=== PATIENT | female | born 1945 | race Caucasian/White ===

== ENCOUNTER 2017-10-01 07:50 | Outpatient (CLI) | payer OTHER | END 2017-10-01 19:50 | disposition home or self-care (01) | LOC: SMA 07:50 | PROVIDERS: ATTEND Family Medicine | DX: Z12.31 Encounter for screening mammogram for malignant neoplasm of breast (principal) | CPT/HCPCS: 77067 ==

== ENCOUNTER 2022-11-18 10:37 | Emergency (ER) | payer OTHER ==
[~2022-11-18] VITALS: Ht 147.3 cm; Wt 63.5 kg
[2022-11-18 11:00] VITALS: BP_SYST 170
--- NOTE | 2022-11-18 11:30 | NUR ---
PT BIB DAUGHTER RENETTA AND KATE AOX4, NO SOB. PT C/O PAIN TO RECTUM AREA. PT STATES RED BLOOD AND PAIN. PT STATES PAIN 7/10. PT HAS HX OF HTN, ANXITY, HTN, DIVERTCOLISIS.
--- NOTE | 2022-11-18 11:31 | NUR ---
MD DR MCLEOD AT BEDSIDE
[2022-11-18 13:31] LABS: BASOPHILS % (AUTO) 0.7 % (0.0-2.0); EOSINOPHILS # (AUTO) 0.1 K/uL (0.0-0.4); EOSINOPHILS % (AUTO) 1.1 % (0.0-4.0); HEMATOCRIT 31.9 % (36-48); HEMOGLOBIN 10.8 g/dL (12.0-16.0); LYMPHOCYTES # (AUTO) 1.6 K/uL (1.0-5.5); LYMPHOCYTES % (AUTO) 24.2 % (20.5-51.5); MEAN CORPUSCULAR HEMOGLOBIN 31 pg (27-31); MEAN CORPUSCULAR HGB CONC 34 % (32-36); MEAN CORPUSCULAR VOLUME 92 fL (79.0-98.0); MONOCYTES # (AUTO) 0.4 K/uL (0.0-1.0); MONOCYTES % (AUTO) 5.5 % (1.7-9.3); NEUTROPHILS # (AUTO) 4.4 K/uL (1.8-7.7); NEUTROPHILS % (AUTO) 68.5 % (40.0-70.0); RED BLOOD CELL COUNT(AUTO) 3.45 MIL/uL (4.2-6.2); RED CELL DISTRIBUTION WIDTH 15.7 % (9.0-15.0)
[2022-11-18] MEDS ORDERED: ANURH RC (13:44)
[2022-11-18 13:46] LABS: WHITE BLOOD COUNT (AUTO) 6.4 K/uL (4.8-10.8)
[2022-11-18 13:53] LABS: ANION GAP 7 (5-15); CALCIUM 8.7 mg/dL (8.4-11.0); CHLORIDE 102 mmol/L (98-107); CREATININE 0.97 mg/dL (0.55-1.30); GLUCOSE 85 mg/dL (70-99); UREA NITROGEN, BLOOD 22 mg/dL (8-21)
[2022-11-18 13:57] LABS: ALANINE AMINOTRANSFERASE 61 U/L (12-78); ALBUMIN 3.5 g/dL (3.4-4.8); AMYLASE 50 U/L (0-100); ASPARTATE AMINOTRANSFERASE 18 U/L (10-37); LIPASE 117 U/L (73-393); TOTAL BILIRUBIN 0.2 mg/dL (0.0-1.0)
--- NOTE | 2022-11-18 14:00 | NUR ---
Patient given written and verbal discharge instructions and verbalizes understanding. ER MD DR MCLEOD discussed with patient the results and treatment provided. Patient in stable condition. ID arm band removed. Patient educated on pain management and to follow up with PMD. Pain Scale . Opportunity for questions provided and answered. Medication side effect fact sheet provided.
[2022-11-18 14:01] LABS: C-REACTIVE PROTEIN QUANT < 0.2 mg/dL (0-0.5)
[2022-11-18 14:13] LABS: PROTHROMBIN TIME 10.6 SECS (9.5-12.5)
[2022-11-18 14:16] LABS: BILIRUBIN,URINE NEGATIVE (NEGATIVE); BLOOD, URINE NEGATIVE (NEGATIVE); CLARITY/URINE CLEAR (CLEAR); COLOR,URINE YELLOW (YELLOW); GLUCOSE,URINE NEGATIVE (NEGATIVE); KETONES,URINE NEGATIVE (NEGATIVE); LEUKOCYTE ESTERASE ,URINE NEGATIVE (NEGATIVE); NITRITE, URINE NEGATIVE (NEGATIVE); PROTEIN URINE NEGATIVE (NEGATIVE); UROBILINOGEN,URINE 0.2 (0.2-1.0)
[2022-11-18 14:37] LABS: PLATELET COUNT (AUTO) 206 K/uL (130-430)
[2022-11-18] MEDS ORDERED: KETOROLAC TROMETHAMINE 30 MG VIAL IM ONE (15:15)
[2022-11-18 16:51] VITALS: BP_SYST 135
== END 2022-11-18 14:00 | disposition home or self-care (01) ==
LOC: SED 10:37
DX: 000.000 (principal); K62.5 Hemorrhage of anus and rectum; R10.32 Left lower quadrant pain; Z79.899 Other long term (current) drug therapy
CPT/HCPCS: 80053; 82150; 83690; 85025; 85610; 85730; 86140; 36415; 76376; 74176; 99284; 96372; 83605; 81003; J1885